=== PATIENT | male | born 1965 | race Caucasian/White ===

== ENCOUNTER 2021-12-29 19:29 | Inpatient (IN) | payer BC ==
[~2021-12-29] VITALS: Ht 193 cm; Wt 127.3 kg
[2021-12-29] MEDS ORDERED: LISI40TA13 PO (20:22)
[2021-12-29] MEDS ORDERED: ALLO100T PO (20:22)
[2021-12-29] MEDS ORDERED: temazepam 15mg capsule PO PRN (21:00)
[2021-12-29] MEDS ORDERED: potassium Cl 20 mEq SR tablet PO PRN ×2 (22:10)
[2021-12-29] MEDS ORDERED: magnesium 4gm in 100ml NS 100 ML IV PRN (22:10)
[2021-12-29] MEDS ORDERED: potassium CL 10mEq/100ml bag 100 ML IV PRN (22:10)
[2021-12-29] MEDS ORDERED: magnesium Cl slow-release 64mg tablet PO PRN (22:10)
[2021-12-29] MEDS ORDERED: morphine 2 MG/ML inj. syringe IV PRN ×2 (22:10)
[2021-12-29] MEDS ORDERED: magnesium 2GM in 50ml NS 50 ML IV PRN (22:10)
[2021-12-29] MEDS ORDERED: acetaminophen 325mg tablet PO PRN ×2 (22:10)
[2021-12-29] MEDS ORDERED: ondansetron/PF 4mg/2ml inj IV PRN (22:10)
[2021-12-29] MEDS: normal saline 1000ml 1,000 ML IV SCH (22:48)
[2021-12-30 02:05] LABS: BASOPHILS # (AUTO) 0.1 X10'3 (0-0.2); BASOPHILS % (AUTO) 0.6 % (0-1); EOSINOPHILS # (AUTO) 0.1 X10'3 (0-0.9); EOSINOPHILS % (AUTO) 0.8 % (0-6); HEMATOCRIT 35.3 % (42.0-52.0); HEMOGLOBIN 11.8 g/dl (14.0-17.9); MEAN CORPUSCULAR HEMOGLOBIN 31.6 PG (27.0-31.0); MEAN CORPUSCULAR HGB CONC 33.6 g/dL (33.0-36.5); MEAN CORPUSCULAR VOLUME 93.9 FL (78-98); MEAN PLATELET VOLUME 7.4 FL (7.4-10.4); MONOCYTES # (AUTO) 1.9 X10'3 (0-0.9); MONOCYTES % (AUTO) 14.4 % (2-12); NEUTROPHILS # (AUTO) 9.2 X10'3 (1.8-7.7); NEUTROPHILS % (AUTO) 69.2 % (42-75); PLATELET COUNT 343 X10'3 (140-440); RED BLOOD COUNT 3.75 X10'6 (4.70-6.10); RED CELL DISTRIBUTION WIDTH 13.2 % (11.5-14.5); WHITE BLOOD COUNT 13.3 X10'3 (4.5-11.0)
[2021-12-30 02:19] LABS: ALANINE AMINOTRANSFERASE 58 U/L (12-78); ALBUMIN 3.3 G/DL (3.4-5.0); ALBUMIN/GLOBULIN RATIO 1.1 (1.1-1.5); ALKALINE PHOSPHATASE 75 IU/L (46-116); ANION GAP 12 (8-16); ASPARTATE AMINO TRANSFERASE 41 U/L (10-37); BILIRUBIN,TOTAL 1.2 MG/DL (0.1-1.0); BLOOD UREA NITROGEN 14 MG/DL (7-18); BUN/CREATININE RATIO 16.7 (5.4-32.0); CALCIUM 8.4 MG/DL (8.5-10.1); CHLORIDE 100 MMOL/L (99-107); CREATININE 0.84 MG/DL (0.60-1.10); GLUCOSE 107 MG/DL (70-104); POTASSIUM 4.1 MMOL/L (3.5-5.1); SODIUM 135 MMOL/L (135-145); TOTAL CARBON DIOXIDE 22.9 MMOL/L (24-32); TOTAL PROTEIN 6.4 G/DL (6.4-8.2); eGFR > 90 ML/MIN
--- NOTE | 2021-12-30 06:32 | NUR ---
Pt sleeping comfortably at this time, no needs.
[2021-12-30] MEDS ORDERED: CefTRIAXone 2gm/D5W 50ml BAG 50 ML IV SCH (08:00)
[2021-12-30] MEDS: K and/or MAG REPLACEMENT MC SCH ×2 (08:00→20:00)
[2021-12-30] MEDS: lisinopril 20mg tablet PO SCH (10:09)
[2021-12-30] MEDS: allopurinol 100mg tablet PO SCH (10:09)
[2021-12-30 11:50] VITALS: BP 132/75
--- NOTE | 2021-12-30 11:57 | NUR ---
IR at bedside for chest tube insertion.
[2021-12-30 12:00] VITALS: BP 129/81
[2021-12-30] MEDS: normal saline 1000ml 1,000 ML IV SCH (12:28)
[2021-12-30] MEDS: HYDROcodone/acetaminophen 10/325mg tab PO PRN ×3 (12:30→21:24)
--- NOTE | 2021-12-30 12:30 | NUR ---
Chest tube inserted successfully by IR. Pt resting comfortably.
--- NOTE | 2021-12-30 15:54 | NUR ---
Atrium changed as chamber placed with placement of tube is full at 2,000 out of bloody appearing drainage. Per Dr. Rayo at bedside, pt able to eat as tolerated.
[2021-12-30] MEDS: piperacillin/tazo 4.5gm/100ml 100 ML IV SCH (16:00)
[2021-12-30 16:14] VITALS: BP 117/61
--- NOTE | 2021-12-30 16:14 | NUR ---
Pt admitted from ED to [place] [id number] report received Larisa.
[2021-12-30 18:00] VITALS: BP 132/68
--- NOTE | 2021-12-30 18:00 | NUR ---
Patient in room [facility] 307. I have received report from FELIZ GARCIA and had the opportunity to ask questions and assume patient care.
[2021-12-30 22:00] VITALS: BP_SYST 110; BP_SYST 123; BP_DIAS 69; BP_DIAS 78
[2021-12-31] MEDS: piperacillin/tazo 4.5gm/100ml 100 ML IV SCH ×4 (00:08→23:51)
[2021-12-31 02:00] VITALS: BP 112/64
[2021-12-31] MEDS: normal saline 1000ml 1,000 ML IV SCH ×2 (02:46→17:04)
[2021-12-31] MEDS: HYDROcodone/acetaminophen 10/325mg tab PO PRN ×3 (03:26→12:17)
--- NOTE | 2021-12-31 06:01 | NUR ---
Problems reprioritized. Patient report given, questions answered & plan of care reviewed with LUIS GARCIA.
--- NOTE | 2021-12-31 06:23 | NUR ---
Patient in room [facility] 307. I have received report from JOSE Bass and had the opportunity to ask questions and assume patient care.
[2021-12-31 06:34] LABS: BASOPHILS % (AUTO) 0.4 % (0-1); EOSINOPHILS # (AUTO) 0.2 X10'3 (0-0.9); EOSINOPHILS % (AUTO) 1.5 % (0-6); HEMATOCRIT 34.1 % (42.0-52.0); HEMOGLOBIN 11.4 g/dl (14.0-17.9); LYMPHOCYTES # (AUTO) 1.3 X10'3 (1.1-4.8); LYMPHOCYTES % (AUTO) 11.8 % (21-51); MEAN CORPUSCULAR HEMOGLOBIN 31.4 PG (27.0-31.0); MEAN CORPUSCULAR HGB CONC 33.4 g/dL (33.0-36.5); MEAN CORPUSCULAR VOLUME 94.1 FL (78-98); MEAN PLATELET VOLUME 8.8 FL (7.4-10.4); MONOCYTES # (AUTO) 1.6 X10'3 (0-0.9); MONOCYTES % (AUTO) 14.5 % (2-12); NEUTROPHILS # (AUTO) 8.1 X10'3 (1.8-7.7); NEUTROPHILS % (AUTO) 71.8 % (42-75); PLATELET COUNT 344 X10'3 (140-440); RED BLOOD COUNT 3.62 X10'6 (4.70-6.10); RED CELL DISTRIBUTION WIDTH 13.2 % (11.5-14.5); WHITE BLOOD COUNT 11.3 X10'3 (4.5-11.0)
[2021-12-31 06:53] VITALS: BP 109/60
[2021-12-31 06:54] LABS: ALANINE AMINOTRANSFERASE 43 U/L (12-78); ALBUMIN/GLOBULIN RATIO 0.9 (1.1-1.5); ALKALINE PHOSPHATASE 69 IU/L (46-116); ANION GAP 9 (8-16); ASPARTATE AMINO TRANSFERASE 19 U/L (10-37); BILIRUBIN,TOTAL 0.7 MG/DL (0.1-1.0); BLOOD UREA NITROGEN 15 MG/DL (7-18); BUN/CREATININE RATIO 16.1 (5.4-32.0); CALCIUM 8.9 MG/DL (8.5-10.1); CHLORIDE 101 MMOL/L (99-107); CREATININE 0.93 MG/DL (0.60-1.10); GLUCOSE 112 MG/DL (70-104); POTASSIUM 4.6 MMOL/L (3.5-5.1); SODIUM 136 MMOL/L (135-145); TOTAL CARBON DIOXIDE 26.2 MMOL/L (24-32); TOTAL PROTEIN 6.2 G/DL (6.4-8.2); eGFR 85 ML/MIN
[2021-12-31] MEDS: K and/or MAG REPLACEMENT MC SCH ×2 (08:00→20:00)
[2021-12-31] MEDS: lisinopril 20mg tablet PO SCH (08:12)
[2021-12-31] MEDS: allopurinol 100mg tablet PO SCH (08:12)
[2021-12-31 11:00] VITALS: BP 119/74
[2021-12-31 15:00] VITALS: BP 117/64
[2021-12-31 18:00] VITALS: BP 119/73
--- NOTE | 2021-12-31 18:25 | NUR ---
Patient in room [facility] 307. I have received report from Michela GARCIA and had the opportunity to ask questions and assume patient care.
--- NOTE | 2021-12-31 18:27 | NUR ---
Problems reprioritized. Patient report given, questions answered & plan of care reviewed with JOSE BOLAND.
[2021-12-31] MEDS: HYDROcodone/acetaminophen 5mg/325mg tablet PO PRN (20:24)
[2021-12-31 22:00] VITALS: BP 114/62
[2022-01-01 02:00] VITALS: BP 120/77
[2022-01-01] MEDS: HYDROcodone/acetaminophen 5mg/325mg tablet PO PRN (02:54)
[2022-01-01 06:00] VITALS: BP 126/68
--- NOTE | 2022-01-01 06:30 | NUR ---
Patient in room [facility] 307. I have received report from JOSE BOLAND, and had the opportunity to ask questions and assume patient care.
--- NOTE | 2022-01-01 06:34 | NUR ---
Problems reprioritized. Patient report given, questions answered & plan of care reviewed with Mónica GARCIA.
[2022-01-01 06:54] LABS: BASOPHILS # (AUTO) 0.1 X10'3 (0-0.2); BASOPHILS % (AUTO) 0.5 % (0-1); EOSINOPHILS # (AUTO) 0.2 X10'3 (0-0.9); EOSINOPHILS % (AUTO) 1.5 % (0-6); HEMATOCRIT 35.2 % (42.0-52.0); HEMOGLOBIN 11.8 g/dl (14.0-17.9); LYMPHOCYTES # (AUTO) 1.7 X10'3 (1.1-4.8); LYMPHOCYTES % (AUTO) 14.6 % (21-51); MEAN CORPUSCULAR HEMOGLOBIN 31.5 PG (27.0-31.0); MEAN CORPUSCULAR HGB CONC 33.6 g/dL (33.0-36.5); MEAN CORPUSCULAR VOLUME 93.8 FL (78-98); MEAN PLATELET VOLUME 7.8 FL (7.4-10.4); MONOCYTES # (AUTO) 1.3 X10'3 (0-0.9); MONOCYTES % (AUTO) 10.9 % (2-12); NEUTROPHILS # (AUTO) 8.4 X10'3 (1.8-7.7); NEUTROPHILS % (AUTO) 72.5 % (42-75); PLATELET COUNT 390 X10'3 (140-440); RED BLOOD COUNT 3.75 X10'6 (4.70-6.10); RED CELL DISTRIBUTION WIDTH 13.2 % (11.5-14.5); WHITE BLOOD COUNT 11.5 X10'3 (4.5-11.0)
[2022-01-01] MEDS: piperacillin/tazo 4.5gm/100ml 100 ML IV SCH ×2 (07:28→15:40)
[2022-01-01] MEDS: lisinopril 20mg tablet PO SCH (07:29)
[2022-01-01] MEDS: allopurinol 100mg tablet PO SCH (07:29)
[2022-01-01] MEDS: normal saline 1000ml 1,000 ML IV SCH (07:34)
[2022-01-01 07:40] LABS: ALANINE AMINOTRANSFERASE 55 U/L (12-78); ALBUMIN 3.3 G/DL (3.4-5.0); ALBUMIN/GLOBULIN RATIO 0.9 (1.1-1.5); ALKALINE PHOSPHATASE 81 IU/L (46-116); ANION GAP 10 (8-16); ASPARTATE AMINO TRANSFERASE 25 U/L (10-37); BILIRUBIN,TOTAL 0.7 MG/DL (0.1-1.0); BLOOD UREA NITROGEN 13 MG/DL (7-18); BUN/CREATININE RATIO 13.7 (5.4-32.0); CALCIUM 9.1 MG/DL (8.5-10.1); CHLORIDE 100 MMOL/L (99-107); CREATININE 0.95 MG/DL (0.60-1.10); GLUCOSE 94 MG/DL (70-104); POTASSIUM 4.3 MMOL/L (3.5-5.1); SODIUM 137 MMOL/L (135-145); TOTAL CARBON DIOXIDE 27.2 MMOL/L (24-32); TOTAL PROTEIN 6.8 G/DL (6.4-8.2); eGFR 83 ML/MIN
[2022-01-01] MEDS: K and/or MAG REPLACEMENT MC SCH ×2 (08:00→19:55)
[2022-01-01 10:00] VITALS: BP 119/71
[2022-01-01 14:00] VITALS: BP 103/62
[2022-01-01 17:28] LABS: BFAPPEAR BLOODY; EOSINOPHILS,BODY FLUID 1 %; LYMPHOCYTES,BODY FLUID 26 %; MONOCYTES,BODY FLUID 33 %; NEUTROPHILS,BODY FLUID 40 %
[2022-01-01 17:29] LABS: BF RBC COUNT 1675000 /CU MM; BF WBC COUNT 3875 /CU MM (0-1000); BFCOLOR RED; BFVOLUME 30 ML
[2022-01-01 17:46] LABS: TOTAL PROTEIN,BODY FLUID 5.7 G/DL
[2022-01-01 17:49] LABS: GLUCOSE,BODY FLUID 0 MG/DL
[2022-01-01 17:59] LABS: LDH,BODY FLUID 4686 U/L
[2022-01-01 18:00] VITALS: BP 122/68
--- NOTE | 2022-01-01 18:03 | NUR ---
Problems reprioritized. Patient report given, questions answered & plan of care reviewed with JOSE FIGUEROA.
[2022-01-01 22:00] VITALS: BP 108/61
[2022-01-02] MEDS: piperacillin/tazo 4.5gm/100ml 100 ML IV SCH ×3 (00:13→16:33)
[2022-01-02 02:00] VITALS: BP 141/72
[2022-01-02] MEDS: normal saline 1000ml 1,000 ML IV SCH ×2 (05:33→11:58)
[2022-01-02 06:00] VITALS: BP 117/69
--- NOTE | 2022-01-02 06:14 | NUR ---
Patient in room [facility] 307. I have received report from JOSE BROWN, and had the opportunity to ask questions and assume patient care.
[2022-01-02 06:40] LABS: BASOPHILS # (AUTO) 0.1 X10'3 (0-0.2); BASOPHILS % (AUTO) 0.8 % (0-1); EOSINOPHILS # (AUTO) 0.3 X10'3 (0-0.9); EOSINOPHILS % (AUTO) 2.7 % (0-6); HEMATOCRIT 32.1 % (42.0-52.0); LYMPHOCYTES # (AUTO) 1.8 X10'3 (1.1-4.8); LYMPHOCYTES % (AUTO) 19.1 % (21-51); MEAN CORPUSCULAR HEMOGLOBIN 32.1 PG (27.0-31.0); MEAN CORPUSCULAR HGB CONC 34.2 g/dL (33.0-36.5); MEAN CORPUSCULAR VOLUME 93.8 FL (78-98); MONOCYTES # (AUTO) 1.1 X10'3 (0-0.9); MONOCYTES % (AUTO) 11.8 % (2-12); NEUTROPHILS # (AUTO) 6.2 X10'3 (1.8-7.7); NEUTROPHILS % (AUTO) 65.6 % (42-75); PLATELET COUNT 385 X10'3 (140-440); RED BLOOD COUNT 3.43 X10'6 (4.70-6.10); RED CELL DISTRIBUTION WIDTH 12.9 % (11.5-14.5); WHITE BLOOD COUNT 9.5 X10'3 (4.5-11.0)
[2022-01-02 07:13] LABS: ALANINE AMINOTRANSFERASE 52 U/L (12-78); ALBUMIN 2.9 G/DL (3.4-5.0); ALBUMIN/GLOBULIN RATIO 0.9 (1.1-1.5); ALKALINE PHOSPHATASE 74 IU/L (46-116); ANION GAP 11 (8-16); ASPARTATE AMINO TRANSFERASE 22 U/L (10-37); BILIRUBIN,TOTAL 0.6 MG/DL (0.1-1.0); BLOOD UREA NITROGEN 12 MG/DL (7-18); BUN/CREATININE RATIO 12.4 (5.4-32.0); CALCIUM 8.9 MG/DL (8.5-10.1); CHLORIDE 102 MMOL/L (99-107); CREATININE 0.97 MG/DL (0.60-1.10); GLUCOSE 88 MG/DL (70-104); POTASSIUM 4.6 MMOL/L (3.5-5.1); SODIUM 139 MMOL/L (135-145); TOTAL CARBON DIOXIDE 25.9 MMOL/L (24-32); TOTAL PROTEIN 6.2 G/DL (6.4-8.2); eGFR 81 ML/MIN
[2022-01-02] MEDS: lisinopril 20mg tablet PO SCH (07:29)
[2022-01-02] MEDS: allopurinol 100mg tablet PO SCH (07:29)
[2022-01-02] MEDS: K and/or MAG REPLACEMENT MC SCH ×2 (07:30→18:47)
[2022-01-02 10:00] VITALS: BP 121/71
[2022-01-02] MEDS: HYDROcodone/acetaminophen 5mg/325mg tablet PO PRN (10:41)
[2022-01-02 14:00] VITALS: BP 110/59
[2022-01-02 18:00] VITALS: BP 131/68
--- NOTE | 2022-01-02 18:31 | NUR ---
Problems reprioritized. Patient report given, questions answered & plan of care reviewed with JOSE MARTINEZ.
[2022-01-02 22:00] VITALS: BP 112/61
[2022-01-03] MEDS: piperacillin/tazo 4.5gm/100ml 100 ML IV SCH ×2 (00:35→08:16)
[2022-01-03 02:00] VITALS: BP 126/64
[2022-01-03] MEDS: normal saline 1000ml 1,000 ML IV SCH (02:16)
[2022-01-03 06:00] VITALS: BP 126/70
[2022-01-03 06:10] LABS: BASOPHILS # (AUTO) 0.1 X10'3 (0-0.2); BASOPHILS % (AUTO) 1.2 % (0-1); EOSINOPHILS # (AUTO) 0.3 X10'3 (0-0.9); EOSINOPHILS % (AUTO) 3.9 % (0-6); HEMATOCRIT 32.8 % (42.0-52.0); LYMPHOCYTES % (AUTO) 22.5 % (21-51); MEAN CORPUSCULAR HEMOGLOBIN 31.4 PG (27.0-31.0); MEAN CORPUSCULAR HGB CONC 33.5 g/dL (33.0-36.5); MEAN CORPUSCULAR VOLUME 93.5 FL (78-98); MEAN PLATELET VOLUME 7.6 FL (7.4-10.4); MONOCYTES % (AUTO) 11.1 % (2-12); NEUTROPHILS # (AUTO) 5.4 X10'3 (1.8-7.7); NEUTROPHILS % (AUTO) 61.3 % (42-75); PLATELET COUNT 396 X10'3 (140-440); RED BLOOD COUNT 3.51 X10'6 (4.70-6.10); WHITE BLOOD COUNT 8.8 X10'3 (4.5-11.0)
[2022-01-03 06:32] LABS: ALANINE AMINOTRANSFERASE 46 U/L (12-78); ALBUMIN/GLOBULIN RATIO 0.9 (1.1-1.5); ALKALINE PHOSPHATASE 73 IU/L (46-116); ANION GAP 8 (8-16); ASPARTATE AMINO TRANSFERASE 19 U/L (10-37); BILIRUBIN,TOTAL 0.6 MG/DL (0.1-1.0); BLOOD UREA NITROGEN 11 MG/DL (7-18); BUN/CREATININE RATIO 10.9 (5.4-32.0); CALCIUM 9.1 MG/DL (8.5-10.1); CHLORIDE 101 MMOL/L (99-107); CREATININE 1.01 MG/DL (0.60-1.10); GLUCOSE 89 MG/DL (70-104); POTASSIUM 4.7 MMOL/L (3.5-5.1); SODIUM 137 MMOL/L (135-145); TOTAL CARBON DIOXIDE 27.6 MMOL/L (24-32); TOTAL PROTEIN 6.2 G/DL (6.4-8.2); eGFR 77 ML/MIN
[2022-01-03] MEDS: K and/or MAG REPLACEMENT MC SCH (08:00)
[2022-01-03 08:16] VITALS: BP_SYST 126
[2022-01-03] MEDS: lisinopril 20mg tablet PO SCH (08:16)
[2022-01-03] MEDS: allopurinol 100mg tablet PO SCH (08:16)
--- NOTE | 2022-01-03 08:37 | NUR ---
Initial: Pt admitted w/ R hemothorax and R pleural effusion s/p fall per EMR. Pt currently on Heart Healthy diet w/ mostly 100% intake of meals meeting needs. Consider liberalizing to Regular diet given only cardiac hx in EMR HTN. LBM 01/02. No nutrition intervention at this time, will continue to monitor. Recs: 1. Continue heart Healthy diet as tolerated 2. Bowel care per rx 3. Scaled wt this admit Addendum: 01/03/22 at [address] Amended: Links added.
[2022-01-03] MEDS ORDERED: LACT1CAP26 PO (09:50)
[2022-01-03] MEDS ORDERED: HYDR-3965 PO (09:50)
[2022-01-03] MEDS ORDERED: AMOX-580 PO (09:50)
== END 2022-01-03 12:35 | disposition home or self-care (01) | DRG 200 ==
LOC: ER 19:30 → ED HOLD 22:17 → MED 3N 12-30 16:14
PROVIDERS: ADMIT Internal Medicine; ATTEND Family Medicine
PROC: 0W9930Z Drainage of Right Pleural Cavity with Drainage Device, Percutaneous Approach (ICD-10-PCS; principal; 2021-12-30)
DX: S27.1XXA Traumatic hemothorax, initial encounter (principal); S22.41XA Multiple fractures of ribs, right side, initial encounter for closed fracture; J90 Pleural effusion, not elsewhere classified; I10 Essential (primary) hypertension; W00.0XXA Fall on same level due to ice and snow, initial encounter; M1A.9XX0 Chronic gout, unspecified, without tophus (tophi); Y93.89 Activity, other specified; Y92.89 Other specified places as the place of occurrence of the external cause; Y99.8 Other external cause status; Z88.8 Allergy status to other drugs, medicaments and biological substances; Z72.89 Other problems related to lifestyle
CPT/HCPCS: 32557; 36415; 71045; 71250; 80053; 82945; 83605; 83615; 83986; 84157; 85025; 87040; 87070; 89051; 96360; 97161; 97530; 99285; G0378; J0696; J2543; J7030